=== PATIENT | female | born 1940 | race Caucasian/White ===

== ENCOUNTER 2019-04-13 17:02 | Observation (INO) ==
[2019-04-13 17:56] LABS: Basophils % 0.5 % (0.0-0.8); Eosinophils % 0.2 % (0.00-10.9); Hematocrit 37.1 VOL% (35.7-47.0); Immature Granulocytes % 0.5 %; Immature Granulocytes Absolute 0.03 #; Lymphocytes # 0.7 10*3/uL (1.4-4.0); Lymphocytes % 11.8 % (21.3-54.2); Mean Corpuscular Volume 95.1 FL (87-102); Mean Platelet Volume 10.5 FL (9.6-12.0); Monocytes % 5.2 % (1.7-12.7); Neutrophils % 81.8 % (38.7-73.9); Red Cell Distribution Width 12.9 % (9.3-17.3)
[2019-04-13 17:59] LABS: Platelet Count 169 T/CUMM (130-400)
[2019-04-13 18:10] LABS: Albumin 3.8 G/DL (3.4-5.0); Bilirubin,Total 0.7 MG/DL (0.2-1.0); Calcium 10.7 MG/DL (8.5-10.1); Osmolality,Calculated 280.5 MOS/KG (273-304); Total Protein 6.8 G/DL (6.4-8.3)
[2019-04-13] MEDS ORDERED: ASPIRIN 325 MG TABLET PO STA (19:42)
[2019-04-13 19:57] LABS: INR 1.1; PT Patient Result 11.4 SECS (9.6-12.2)
[2019-04-13] MEDS ORDERED: NITROGLYCERIN SL 0.4 MG TABLET SL STA (20:01)
[2019-04-13] MEDS ORDERED: SODIUM CHLORIDE 0.9% 500 ML IV STA (20:01)
[2019-04-13 20:11] LABS: Apearance,Urine Slightly Hazy (Clear); Bilirubin,Urine Negative (Negative); Blood, Urine Negative (Negative); Glucose,Urine (UA) Negative (Negative); Hyaline Casts,Urine 65 /LPF (0-3); Ketones,Urine 20 mg/dL (Negative); Mucus,Urine Many /LPF (Occasional); Nitrite,Urine Negative (Negative); Protein,Urine 100 MG/DL; Squamous Epithelial Cell,Urine Occasional /HPF (0-10); Urine Color Amber (Yellow); Urine Specific Gravity 1.021 (1.001-1.035); WBC,Urine 7 /HPF (0-6)
[2019-04-13] MEDS ORDERED: ENOXAPARIN 30 MG/0.3 ML SYRINGE SUBCUT STA (20:33)
[2019-04-13] MEDS ORDERED: cefTRIAXone 1,000 MG in SODIUM CHLORIDE 0.9% 100 ML IV STA (20:35)
[2019-04-13] MEDS ORDERED: ENOXAPARIN 60 MG/0.6 ML SYRINGE ONE (20:39)
[2019-04-13] MEDS ORDERED: POTASSIUM CHLORIDE 20 MEQ TABLET PO PRN (22:49)
[2019-04-13] MEDS ORDERED: MORPHINE 4 MG/1 ML VIAL IV PRN (22:49)
[2019-04-13] MEDS ORDERED: MAGNESIUM SULF RIDER 2 GM in PREMIX 1 EACH IV PRN (22:49)
[2019-04-14] MEDS ORDERED: ONDANSETRON 4 MG/2 ML VIAL IV PRN (00:12)
[2019-04-14] MEDS ORDERED: hydrOXYzine HCL 25 MG TABLET PO SCH (00:30)
[2019-04-14] MEDS ORDERED: ROSUVASTATIN 10 MG TABLET PO SCH (00:30)
[2019-04-14] MEDS: ASPIRIN EC 81 MG TABLET PO SCH ×2 (01:01→09:03)
[2019-04-14 04:00] LABS: INR 1.1; PT Patient Result 11.8 SECS (9.6-12.2)
[2019-04-14 04:11] LABS: Albumin 3.1 G/DL (3.4-5.0); Bilirubin,Total 0.5 MG/DL (0.2-1.0); Calcium 9.9 MG/DL (8.5-10.1); Osmolality,Calculated 282.3 MOS/KG (273-304); Risk Ratio 1.65; Total Protein 5.9 G/DL (6.4-8.3)
[2019-04-14 04:17] LABS: Basophils % 0.8 % (0.0-0.8); Eosinophils # 0.1 10*3/uL (0.0-0.87); Eosinophils % 1.2 % (0.00-10.9); Hematocrit 31.7 VOL% (35.7-47.0); Immature Granulocytes % 0.2 %; Immature Granulocytes Absolute 0.01 #; Lymphocytes # 1.5 10*3/uL (1.4-4.0); Lymphocytes % 29.1 % (21.3-54.2); Mean Corpuscular HGB Conc 34.7 GM/DL (32-36); Mean Corpuscular Volume 95.5 FL (87-102); Monocytes % 9.3 % (1.7-12.7); Neutrophils % 59.4 % (38.7-73.9); Platelet Count 219 T/CUMM (130-400); Red Blood Count 3.32 MC/CUMM (3.8-5.5); Red Cell Distribution Width 12.5 % (9.3-17.3); White Blood Count 5.1 T/CUMM (4-12)
[2019-04-14] MEDS ORDERED: ENOXAPARIN 30 MG/0.3 ML SYRINGE SUBCUT SCH (09:00)
[2019-04-14] MEDS ORDERED: PAROXETINE HCL 12.5 MG PO SCH (09:00)
[2019-04-14] MEDS ORDERED: MAGNESIUM SULF RIDER 2 GM in PREMIX 1 EACH IV ONE (10:40)
[2019-04-14] MEDS ORDERED: POTASSIUM CHLORIDE 20 MEQ TABLET PO SCH (11:00)
[2019-04-14 12:42] VITALS: BP 180/77
== END 2019-04-14 14:24 | disposition home or self-care (01) ==
LOC: N.ED 17:02 → N.EDINP 17:02 → N.TELES 23:43
PROVIDERS: ADMIT Hospitalist; ATTEND Hospitalist

== ENCOUNTER 2021-06-03 16:41 | Inpatient (IN) ==
[2021-06-03] MEDS ORDERED: FUROSEMIDE 40 MG/4 ML VIAL IV STA ×2 (18:06→18:07)
[2021-06-03 18:21] LABS: Bilirubin,Urine Negative (Negative); Blood, Urine Small mg/dL (Negative); Glucose,Urine (UA) Negative (Negative); Hyaline Casts,Urine 17 /LPF (0-3); Ketones,Urine Negative (Negative); Mucus,Urine Occasional /LPF (Occasional); Nitrite,Urine Negative (Negative); Protein,Urine 100 MG/DL; RBC,Urine 2 /HPF (0-4); Squamous Epithelial Cell,Urine Few /HPF (0-10); Urine Appearance CLEAR (Clear); Urine Color Yellow (Yellow); Urine Specific Gravity 1.014 (1.001-1.035)
[2021-06-03 18:29] LABS: Basophils % 0.3 % (0.0-0.8); Eosinophils % 0.3 % (0.00-10.9); Hematocrit 34.4 VOL% (35.7-47.0); Hemoglobin 11.5 GM/DL (12.0-16.0); Immature Granulocytes % 0.3 %; Immature Granulocytes Absolute 0.02 #; Lymphocytes # 0.7 10*3/uL (1.4-4.0); Lymphocytes % 11.4 % (21.3-54.2); Mean Corpuscular HGB Conc 33.4 GM/DL (32-36); Mean Corpuscular Volume 97.5 FL (87-102); Monocytes % 8.5 % (1.7-12.7); Neutrophils % 79.2 % (38.7-73.9); Platelet Count 251 T/CUMM (130-400); Red Blood Count 3.53 MC/CUMM (3.8-5.5); Red Cell Distribution Width 13.7 % (9.3-17.3); White Blood Count 6.2 T/CUMM (4-12)
[2021-06-03 18:41] LABS: INR 1.2; PT Patient Result 13.4 SECS (10.5-12.0); Partial Thromboplastin Time 28.9 SECS (23.8-32.1)
[2021-06-03 18:52] LABS: Albumin 3.1 G/DL (3.4-5.0); Bilirubin,Total 1.7 MG/DL (0.20-1.00); Calcium 9.6 MG/DL (8.5-10.1); Osmolality,Calculated 267.5 MOS/KG (273-304); Potassium 3.5 MMOL/L (3.5-5.1); Total Protein 6.5 G/DL (6.4-8.2)
[2021-06-03] MEDS ORDERED: DILTIAZEM 50 MG/10 ML VIAL IV STA (19:16)
[2021-06-03] MEDS ORDERED: GLUCAGON 1 MG VIAL IM PRN (19:19)
[2021-06-03] MEDS ORDERED: DEXTROSE 50% 25 GM/50 ML SYRINGE IV PRN (19:23)
[2021-06-03] MEDS ORDERED: hydrALAZINE 20 MG/1 ML VIAL IV PRN (19:52)
[2021-06-03] MEDS: DILTIAZEM INJ 100 MG in SODIUM CHLORIDE 0.9% 100 ML IV SCH (20:39)
[2021-06-03] MEDS: ENOXAPARIN 60 MG/0.6 ML SYRINGE SUBCUT SCH (22:25)
[2021-06-04 05:11] LABS: Basophils % 0.4 % (0.0-0.8); Eosinophils # 0.1 10*3/uL (0.0-0.87); Hematocrit 35.2 VOL% (35.7-47.0); Hemoglobin 12.2 GM/DL (12.0-16.0); Immature Granulocytes % 0.3 %; Immature Granulocytes Absolute 0.02 #; Lymphocytes # 0.8 10*3/uL (1.4-4.0); Lymphocytes % 11.4 % (21.3-54.2); Mean Corpuscular HGB Conc 34.7 GM/DL (32-36); Mean Corpuscular Volume 96.4 FL (87-102); Mean Platelet Volume 10.3 FL (9.6-12.0); Monocytes % 9.1 % (1.7-12.7); Neutrophils % 77.8 % (38.7-73.9); Platelet Count 245 T/CUMM (130-400); Red Blood Count 3.65 MC/CUMM (3.8-5.5); Red Cell Distribution Width 13.2 % (9.3-17.3)
[2021-06-04 05:47] LABS: Calcium 9.6 MG/DL (8.5-10.1); Osmolality,Calculated 278.5 MOS/KG (273-304); Potassium 2.6 MMOL/L (3.5-5.1); Risk Ratio 1.75; Thyroid Stimulating Hormone 2.17 uIU/ml (0.358-3.74); VLDL Cholesterol 13.2 MG/DL
[2021-06-04] MEDS: ENOXAPARIN 60 MG/0.6 ML SYRINGE SUBCUT SCH (06:34)
[2021-06-04] MEDS ORDERED: MAGNESIUM SULF RIDER 2 GM/50 ML PREMIX IV PRN (06:58)
[2021-06-04] MEDS ORDERED: MAGNESIUM SULF RIDER 4 GM/100 ML PREMIX IV PRN (06:58)
[2021-06-04] MEDS ORDERED: POTASSIUM CHLORIDE RIDER 10 MEQ/100 ML PREMIX IV PRN (06:58)
[2021-06-04] MEDS ORDERED: MAGNESIUM SULF RIDER 2 GM/50 ML PREMIX IV ONE (07:23)
[2021-06-04] MEDS ORDERED: POTASSIUM CHLORIDE 20 MEQ TABLET PO ONE (07:23)
[2021-06-04] MEDS ORDERED: SOTALOL 80 MG TABLET PO SCH (09:00)
[2021-06-04] MEDS ORDERED: METOPROLOL TARTRATE 25 MG TABLET PO SCH (09:00)
[2021-06-04] MEDS: ROSUVASTATIN 10 MG TABLET PO SCH (09:54)
[2021-06-04] MEDS: lisinopriL 20 MG TABLET PO SCH (09:55)
[2021-06-04] MEDS: CHOLECALCIFEROL 1,000 UNIT TABLET PO SCH (09:55)
[2021-06-04] MEDS: SPIRONOLACTONE 25 MG TABLET PO SCH (09:55)
[2021-06-04] MEDS: ASCORBIC ACID 500 MG TABLET PO SCH ×2 (09:55→21:22)
[2021-06-04] MEDS: AMIODARONE 200 MG TABLET PO SCH ×2 (09:56→21:22)
[2021-06-04] MEDS: APIXABAN 2.5 MG TABLET PO SCH ×2 (09:56→21:22)
[2021-06-04] MEDS: ASPIRIN EC 81 MG TABLET PO SCH (09:56)
[2021-06-04] MEDS: PRIMIDONE 50 MG TABLET PO SCH (09:56)
[2021-06-04] MEDS: METOPROLOL TARTRATE 25 MG TABLET PO SCH ×2 (10:02→21:21)
[2021-06-04] MEDS: POTASSIUM CHLORIDE 10 MEQ TABLET PO SCH (10:02)
[2021-06-04] MEDS: PAROXETINE HCL 12.5 MG PO SCH (10:03)
[2021-06-04] MEDS: MAGNESIUM OXIDE 400 MG TABLET PO SCH (10:51)
[2021-06-04] MEDS: FUROSEMIDE 40 MG/4 ML VIAL IV SCH (21:22)
[2021-06-04] MEDS: hydrOXYzine HCL 25 MG TABLET PO SCH (21:22)
[2021-06-05] MEDS: DILTIAZEM INJ 100 MG in SODIUM CHLORIDE 0.9% 100 ML IV SCH (04:52)
[2021-06-05 06:46] LABS: Albumin 2.8 G/DL (3.4-5.0); Bilirubin,Total 0.5 MG/DL (0.20-1.00); Calcium 10.2 MG/DL (8.5-10.1); Osmolality,Calculated 269.2 MOS/KG (273-304); Potassium 3.2 MMOL/L (3.5-5.1)
[2021-06-05] MEDS ORDERED: POTASSIUM CHLORIDE 20 MEQ TABLET PO ONE (07:52)
[2021-06-05] MEDS: ROSUVASTATIN 10 MG TABLET PO SCH (09:26)
[2021-06-05] MEDS: ASCORBIC ACID 500 MG TABLET PO SCH ×2 (09:29→20:46)
[2021-06-05] MEDS: lisinopriL 20 MG TABLET PO SCH (09:30)
[2021-06-05] MEDS: METOPROLOL TARTRATE 25 MG TABLET PO SCH ×2 (09:32→20:46)
[2021-06-05] MEDS: CHOLECALCIFEROL 1,000 UNIT TABLET PO SCH (09:33)
[2021-06-05] MEDS: APIXABAN 2.5 MG TABLET PO SCH ×2 (09:34→20:47)
[2021-06-05] MEDS: AMIODARONE 200 MG TABLET PO SCH ×2 (09:35→20:47)
[2021-06-05] MEDS: ASPIRIN EC 81 MG TABLET PO SCH (09:35)
[2021-06-05] MEDS: SPIRONOLACTONE 25 MG TABLET PO SCH (09:36)
[2021-06-05] MEDS: MAGNESIUM OXIDE 400 MG TABLET PO SCH (09:37)
[2021-06-05] MEDS: FUROSEMIDE 40 MG/4 ML VIAL IV SCH ×2 (09:38→16:34)
[2021-06-05] MEDS: PRIMIDONE 50 MG TABLET PO SCH (09:38)
[2021-06-05] MEDS: PAROXETINE HCL 12.5 MG PO SCH (09:45)
[2021-06-05] MEDS: POTASSIUM CHLORIDE 10 MEQ TABLET PO SCH (16:32)
[2021-06-05] MEDS: hydrOXYzine HCL 25 MG TABLET PO SCH (20:47)
[2021-06-06 05:24] LABS: Calcium 9.4 MG/DL (8.5-10.1); Osmolality,Calculated 273.1 MOS/KG (273-304); Potassium 3.4 MMOL/L (3.5-5.1)
[2021-06-06] MEDS ORDERED: POTASSIUM CHLORIDE 20 MEQ TABLET PO ONE (08:04)
[2021-06-06] MEDS ORDERED: MAGNESIUM OXIDE 400 MG TABLET PO SCH (09:00)
[2021-06-06] MEDS: lisinopriL 20 MG TABLET PO SCH (10:11)
[2021-06-06] MEDS: CHOLECALCIFEROL 1,000 UNIT TABLET PO SCH (10:11)
[2021-06-06] MEDS: ROSUVASTATIN 10 MG TABLET PO SCH (10:12)
[2021-06-06] MEDS: SPIRONOLACTONE 25 MG TABLET PO SCH (10:12)
[2021-06-06] MEDS: ASCORBIC ACID 500 MG TABLET PO SCH (10:13)
[2021-06-06] MEDS: METOPROLOL TARTRATE 25 MG TABLET PO SCH (10:13)
[2021-06-06] MEDS: POTASSIUM CHLORIDE 10 MEQ TABLET PO SCH (10:13)
[2021-06-06] MEDS: APIXABAN 2.5 MG TABLET PO SCH (10:14)
[2021-06-06] MEDS: ASPIRIN EC 81 MG TABLET PO SCH (10:14)
[2021-06-06] MEDS: PAROXETINE HCL 12.5 MG PO SCH (10:15)
[2021-06-06] MEDS: PRIMIDONE 50 MG TABLET PO SCH (10:16)
[2021-06-06] MEDS ORDERED: AMIODARONE 200 MG TABLET PO SCH (11:00)
[2021-06-06] MEDS ORDERED: METOPROLOL SUCCINATE XL 25 MG TABLET PO SCH ×2 (11:00→11:30)
[2021-06-06] MEDS: FUROSEMIDE 40 MG/4 ML VIAL IV SCH (12:29)
[2021-06-06] MEDS: AMIODARONE 200 MG TABLET PO SCH (12:30)
[2021-06-06 12:55] VITALS: BP 137/68
== END 2021-06-06 14:45 | disposition home health service (06) | DRG 308 ==
LOC: N.EDINP 16:41 → N.ED 16:41 → SUATTDRO 19:19 → N.TELEN 22:08
PROVIDERS: ADMIT Emergency Medicine; ATTEND Internal Medicine

== ENCOUNTER 2021-06-14 13:21 | Inpatient (IN) ==
[2021-06-14] MEDS ORDERED: hydrALAZINE 20 MG/1 ML VIAL IV STA (14:08)
[2021-06-14 14:19] LABS: Albumin 3.3 G/DL (3.4-5.0); Bilirubin,Total 0.5 MG/DL (0.20-1.00); Calcium 9.7 MG/DL (8.5-10.1); Osmolality,Calculated 259.8 MOS/KG (273-304); Potassium 4.6 MMOL/L (3.5-5.1); Total Protein 6.6 G/DL (6.4-8.2)
[2021-06-14 14:38] LABS: Basophils # 0.1 10*3/uL (0.0-0.2); Basophils % 1.3 % (0.0-0.8); Eosinophils # 0.1 10*3/uL (0.0-0.87); Eosinophils % 1.3 % (0.00-10.9); Hematocrit 36.3 VOL% (35.7-47.0); Hemoglobin 12.3 GM/DL (12.0-16.0); Immature Granulocytes % 0.4 %; Immature Granulocytes Absolute 0.02 #; Lymphocytes # 0.7 10*3/uL (1.4-4.0); Mean Corpuscular HGB Conc 33.9 GM/DL (32-36); Mean Corpuscular Volume 98.9 FL (87-102); Mean Platelet Volume 9.6 FL (9.6-12.0); Monocytes % 9.8 % (1.7-12.7); Neutrophils % 72.2 % (38.7-73.9); Platelet Count 284 T/CUMM (130-400); Red Blood Count 3.67 MC/CUMM (3.8-5.5); White Blood Count 4.6 T/CUMM (4-12)
[2021-06-14 16:03] LABS: Bilirubin,Urine Negative (Negative); Blood, Urine Negative (Negative); Glucose,Urine (UA) Negative (Negative); Ketones,Urine Negative (Negative); Nitrite,Urine Negative (Negative); Protein,Urine Negative; RBC,Urine <1 /HPF (0-4); Urine Appearance CLEAR (Clear); Urine Color Straw (Yellow); Urine Specific Gravity 1.003 (1.001-1.035); Urine Urobilinogen < 2.0 EU/DL (0.2-1.0)
[2021-06-14] MEDS ORDERED: ALUMINUM/MAGNES/SIMETH MAX STR 30 ML UDCUP PO PRN (16:09)
[2021-06-14] MEDS ORDERED: ACETAMINOPHEN 325 MG TABLET PO PRN (16:09)
[2021-06-14] MEDS ORDERED: hydrALAZINE 20 MG/1 ML VIAL IV PRN (16:09)
[2021-06-14] MEDS ORDERED: GLUCAGON 1 MG VIAL IM PRN (16:09)
[2021-06-14] MEDS ORDERED: ONDANSETRON 4 MG/2 ML VIAL IV PRN (16:09)
[2021-06-14] MEDS ORDERED: guaiFENesin/DM ER 600-30 MG TABLET PO PRN (16:09)
[2021-06-14] MEDS ORDERED: DOCUSATE SODIUM 100 MG CAPSULE PO PRN (16:09)
[2021-06-14] MEDS ORDERED: FUROSEMIDE 40 MG/4 ML VIAL IV STA (16:14)
[2021-06-14] MEDS ORDERED: ALBUTEROL/IPRATROPIUM 3 ML NEB RESP TX PRN (16:16)
[2021-06-14] MEDS ORDERED: DEXTROSE 50% 25 GM/50 ML SYRINGE IV PRN (16:17)
[2021-06-14] MEDS: cefTRIAXone 1,000 MG in SODIUM CHLORIDE 0.9% 100 ML IV SCH (17:10)
[2021-06-14] MEDS: AZITHROMYCIN INJ 500 MG in SODIUM CHLORIDE 0.9% 250 ML IV SCH (18:40)
[2021-06-14 18:57] LABS: Thyroid Stimulating Hormone 2.59 uIU/ml (0.358-3.74)
[2021-06-15] MEDS: ROSUVASTATIN 10 MG TABLET PO SCH ×2 (01:09→22:18)
[2021-06-15] MEDS: APIXABAN 2.5 MG TABLET PO SCH ×3 (01:09→22:19)
[2021-06-15] MEDS: MAGNESIUM OXIDE 400 MG TABLET PO SCH ×3 (01:10→22:18)
[2021-06-15] MEDS: ASCORBIC ACID 500 MG TABLET PO SCH ×3 (01:10→22:19)
[2021-06-15 02:51] LABS: Basophils # 0.1 10*3/uL (0.0-0.2); Basophils % 0.7 % (0.0-0.8); Eosinophils % 0.1 % (0.00-10.9); Hemoglobin 12.9 GM/DL (12.0-16.0); Immature Granulocytes % 0.4 %; Immature Granulocytes Absolute 0.03 #; Lymphocytes # 0.6 10*3/uL (1.4-4.0); Lymphocytes % 7.8 % (21.3-54.2); Mean Corpuscular HGB Conc 33.9 GM/DL (32-36); Mean Corpuscular Volume 96.9 FL (87-102); Mean Platelet Volume 9.5 FL (9.6-12.0); Monocytes % 5.7 % (1.7-12.7); Neutrophils % 85.3 % (38.7-73.9); Platelet Count 305 T/CUMM (130-400); Red Blood Count 3.92 MC/CUMM (3.8-5.5); Red Cell Distribution Width 14.2 % (9.3-17.3); White Blood Count 7.2 T/CUMM (4-12)
[2021-06-15 03:20] LABS: Albumin 3.3 G/DL (3.4-5.0); Bilirubin,Total 0.5 MG/DL (0.20-1.00); Calcium 9.7 MG/DL (8.5-10.1); Osmolality,Calculated 265.4 MOS/KG (273-304); Potassium 3.6 MMOL/L (3.5-5.1); Risk Ratio 1.74; Total Protein 6.7 G/DL (6.4-8.2); VLDL Cholesterol 6.6 MG/DL
[2021-06-15] MEDS: PRIMIDONE 50 MG TABLET PO SCH (10:29)
[2021-06-15] MEDS: PANTOPRAZOLE 40 MG TABLET PO SCH (10:29)
[2021-06-15] MEDS: CHOLECALCIFEROL 1,000 UNIT TABLET PO SCH (10:30)
[2021-06-15] MEDS: lisinopriL 20 MG TABLET PO SCH (10:30)
[2021-06-15] MEDS: ASPIRIN EC 81 MG TABLET PO SCH (10:30)
[2021-06-15] MEDS: FUROSEMIDE 40 MG/4 ML VIAL IV SCH (10:31)
[2021-06-15] MEDS: PAROXETINE 12.5 MG PO SCH ×2 (10:42→18:09)
[2021-06-15] MEDS: cefTRIAXone 1,000 MG in SODIUM CHLORIDE 0.9% 100 ML IV SCH (17:24)
[2021-06-15] MEDS: AZITHROMYCIN INJ 500 MG in SODIUM CHLORIDE 0.9% 250 ML IV SCH (18:01)
[2021-06-15] MEDS: hydrOXYzine HCL 25 MG TABLET PO SCH (22:18)
[2021-06-16 05:52] LABS: Basophils # 0.1 10*3/uL (0.0-0.2); Basophils % 1.2 % (0.0-0.8); Eosinophils # 0.3 10*3/uL (0.0-0.87); Eosinophils % 4.8 % (0.00-10.9); Hematocrit 34.2 VOL% (35.7-47.0); Hemoglobin 11.7 GM/DL (12.0-16.0); Immature Granulocytes % 0.2 %; Immature Granulocytes Absolute 0.01 #; Lymphocytes # 0.8 10*3/uL (1.4-4.0); Lymphocytes % 15.5 % (21.3-54.2); Mean Corpuscular HGB Conc 34.2 GM/DL (32-36); Mean Corpuscular Volume 96.6 FL (87-102); Mean Platelet Volume 9.5 FL (9.6-12.0); Monocytes % 10.1 % (1.7-12.7); Neutrophils % 68.2 % (38.7-73.9); Platelet Count 262 T/CUMM (130-400); Red Blood Count 3.54 MC/CUMM (3.8-5.5); White Blood Count 5.2 T/CUMM (4-12)
[2021-06-16 06:23] LABS: Calcium 8.9 MG/DL (8.5-10.1); Osmolality,Calculated 270.1 MOS/KG (273-304); Potassium 3.3 MMOL/L (3.5-5.1)
[2021-06-16] MEDS ORDERED: POTASSIUM CHLORIDE 20 MEQ TABLET PO ONE (09:00)
[2021-06-16] MEDS: MAGNESIUM OXIDE 400 MG TABLET PO SCH ×2 (09:43→21:13)
[2021-06-16] MEDS: lisinopriL 20 MG TABLET PO SCH (09:44)
[2021-06-16] MEDS: PANTOPRAZOLE 40 MG TABLET PO SCH (09:44)
[2021-06-16] MEDS: APIXABAN 2.5 MG TABLET PO SCH ×2 (09:44→21:09)
[2021-06-16] MEDS: ASCORBIC ACID 500 MG TABLET PO SCH ×2 (09:44→21:13)
[2021-06-16] MEDS: CHOLECALCIFEROL 1,000 UNIT TABLET PO SCH (09:44)
[2021-06-16] MEDS: ASPIRIN EC 81 MG TABLET PO SCH (09:44)
[2021-06-16] MEDS: PRIMIDONE 50 MG TABLET PO SCH (09:51)
[2021-06-16] MEDS: FUROSEMIDE 40 MG/4 ML VIAL IV SCH (09:55)
[2021-06-16] MEDS ORDERED: SODIUM CHLORIDE 0.9% 1,000 ML IV SCH (11:00)
[2021-06-16] MEDS ORDERED: POTASSIUM CHLORIDE RIDER 10 MEQ/100 ML PREMIX IV PRN (11:53)
[2021-06-16] MEDS ORDERED: TISSUE ADHESIVE 1 EACH APPLICATOR TOP ONE (12:41)
[2021-06-16] MEDS ORDERED: LIDOCAINE 1%/EPI INJ 20 ML VIAL ONE (12:41)
[2021-06-16] MEDS ORDERED: MIDAZOLAM 2 MG/2 ML VIAL ONE (12:41)
[2021-06-16] MEDS ORDERED: HYDROmorphone 2 MG/1 ML VIAL ONE (12:41)
[2021-06-16] MEDS ORDERED: ceFAZolin 1,000 MG VIAL ONE ×2 (12:53→12:56)
[2021-06-16] MEDS ORDERED: METOPROLOL TARTRATE 5 MG/5 ML VIAL IV ONE (13:29)
[2021-06-16] MEDS ORDERED: NALOXONE 0.4 MG/ML VIAL IV ONE ×2 (15:15→15:18)
[2021-06-16 15:30] LABS: Calcium 9.7 MG/DL (8.5-10.1); Osmolality,Calculated 275.1 MOS/KG (273-304); Potassium 4.3 MMOL/L (3.5-5.1)
[2021-06-16] MEDS: PAROXETINE 12.5 MG PO SCH (15:47)
[2021-06-16] MEDS: cefTRIAXone 1,000 MG in SODIUM CHLORIDE 0.9% 100 ML IV SCH (16:22)
[2021-06-16] MEDS: AZITHROMYCIN INJ 500 MG in SODIUM CHLORIDE 0.9% 250 ML IV SCH (17:27)
[2021-06-16] MEDS: hydrOXYzine HCL 25 MG TABLET PO SCH (21:12)
[2021-06-16] MEDS: ROSUVASTATIN 10 MG TABLET PO SCH (21:12)
[2021-06-17 05:32] LABS: Calcium 9.4 MG/DL (8.5-10.1); Osmolality,Calculated 270.4 MOS/KG (273-304); Potassium 4.3 MMOL/L (3.5-5.1)
[2021-06-17] MEDS: FUROSEMIDE 40 MG/4 ML VIAL IV SCH (09:22)
[2021-06-17] MEDS: PAROXETINE 12.5 MG PO SCH (09:24)
[2021-06-17] MEDS: APIXABAN 2.5 MG TABLET PO SCH (09:25)
[2021-06-17] MEDS: lisinopriL 20 MG TABLET PO SCH (09:25)
[2021-06-17] MEDS: ASPIRIN EC 81 MG TABLET PO SCH (09:25)
[2021-06-17] MEDS: PRIMIDONE 50 MG TABLET PO SCH (09:26)
[2021-06-17] MEDS: ASCORBIC ACID 500 MG TABLET PO SCH ×2 (09:26→20:24)
[2021-06-17] MEDS: CHOLECALCIFEROL 1,000 UNIT TABLET PO SCH (09:26)
[2021-06-17] MEDS: MAGNESIUM OXIDE 400 MG TABLET PO SCH ×2 (09:26→20:23)
[2021-06-17] MEDS: PANTOPRAZOLE 40 MG TABLET PO SCH (09:26)
[2021-06-17 12:17] LABS: Basophils % 0.1 % (0.0-0.8); Eosinophils % 0.1 % (0.00-10.9); Hematocrit 35.2 VOL% (35.7-47.0); Hemoglobin 11.8 GM/DL (12.0-16.0); Immature Granulocytes % 0.3 %; Immature Granulocytes Absolute 0.03 #; Lymphocytes # 0.8 10*3/uL (1.4-4.0); Lymphocytes % 7.6 % (21.3-54.2); Mean Corpuscular HGB Conc 33.5 GM/DL (32-36); Mean Corpuscular Volume 99.7 FL (87-102); Mean Platelet Volume 9.3 FL (9.6-12.0); Monocytes % 7.4 % (1.7-12.7); Neutrophils % 84.5 % (38.7-73.9); Platelet Count 265 T/CUMM (130-400); Red Blood Count 3.53 MC/CUMM (3.8-5.5); Red Cell Distribution Width 14.5 % (9.3-17.3); White Blood Count 9.9 T/CUMM (4-12)
[2021-06-17 15:32] LABS: Bilirubin,Urine Negative (Negative); Blood, Urine Large mg/dL (Negative); Glucose,Urine (UA) Negative (Negative); Hyaline Casts,Urine 3 /LPF (0-3); Ketones,Urine Negative (Negative); Mucus,Urine Occasional /LPF (Occasional); Nitrite,Urine Negative (Negative); Protein,Urine 100 MG/DL; RBC,Urine 742 /HPF (0-4); Urine Appearance CLOUDY (Clear); Urine Color Amber (Yellow); Urine Specific Gravity 1.012 (1.001-1.035); Urine Urobilinogen < 2.0 EU/DL (0.2-1.0)
[2021-06-17] MEDS: cefTRIAXone 1,000 MG in SODIUM CHLORIDE 0.9% 100 ML IV SCH (16:35)
[2021-06-17] MEDS: AZITHROMYCIN INJ 500 MG in SODIUM CHLORIDE 0.9% 250 ML IV SCH (17:14)
[2021-06-17] MEDS: ROSUVASTATIN 10 MG TABLET PO SCH (20:24)
[2021-06-17] MEDS: hydrOXYzine HCL 25 MG TABLET PO SCH (20:28)
[2021-06-18 07:12] LABS: Basophils % 0.6 % (0.0-0.8); Eosinophils # 0.3 10*3/uL (0.0-0.87); Eosinophils % 3.7 % (0.00-10.9); Hemoglobin 10.8 GM/DL (12.0-16.0); Immature Granulocytes % 0.3 %; Immature Granulocytes Absolute 0.02 #; Lymphocytes # 0.8 10*3/uL (1.4-4.0); Lymphocytes % 11.6 % (21.3-54.2); Mean Corpuscular HGB Conc 33.8 GM/DL (32-36); Mean Corpuscular Volume 98.8 FL (87-102); Mean Platelet Volume 9.5 FL (9.6-12.0); Monocytes % 8.5 % (1.7-12.7); Neutrophils % 75.3 % (38.7-73.9); Platelet Count 212 T/CUMM (130-400); Red Blood Count 3.24 MC/CUMM (3.8-5.5); White Blood Count 6.8 T/CUMM (4-12)
[2021-06-18] MEDS: CHOLECALCIFEROL 1,000 UNIT TABLET PO SCH (08:57)
[2021-06-18] MEDS: lisinopriL 20 MG TABLET PO SCH (08:57)
[2021-06-18] MEDS: PANTOPRAZOLE 40 MG TABLET PO SCH (08:58)
[2021-06-18] MEDS: FUROSEMIDE 40 MG/4 ML VIAL IV SCH (08:58)
[2021-06-18] MEDS: MAGNESIUM OXIDE 400 MG TABLET PO SCH ×2 (08:58→20:24)
[2021-06-18] MEDS: PRIMIDONE 50 MG TABLET PO SCH (08:58)
[2021-06-18] MEDS: ASPIRIN EC 81 MG TABLET PO SCH (08:58)
[2021-06-18] MEDS: ASCORBIC ACID 500 MG TABLET PO SCH ×2 (08:58→20:23)
[2021-06-18] MEDS: PAROXETINE 12.5 MG PO SCH (08:59)
[2021-06-18] MEDS: AMIODARONE 200 MG TABLET PO SCH ×2 (09:39→20:24)
[2021-06-18] MEDS: cefTRIAXone 1,000 MG in SODIUM CHLORIDE 0.9% 100 ML IV SCH (16:47)
[2021-06-18] MEDS: AZITHROMYCIN INJ 500 MG in SODIUM CHLORIDE 0.9% 250 ML IV SCH (17:26)
[2021-06-18] MEDS: hydrOXYzine HCL 25 MG TABLET PO SCH (20:23)
[2021-06-18] MEDS: ROSUVASTATIN 10 MG TABLET PO SCH (20:24)
[2021-06-19] MEDS: ASCORBIC ACID 500 MG TABLET PO SCH (08:45)
[2021-06-19] MEDS: CHOLECALCIFEROL 1,000 UNIT TABLET PO SCH (08:46)
[2021-06-19] MEDS: PANTOPRAZOLE 40 MG TABLET PO SCH (08:46)
[2021-06-19] MEDS: ASPIRIN EC 81 MG TABLET PO SCH (08:46)
[2021-06-19] MEDS: lisinopriL 20 MG TABLET PO SCH (08:46)
[2021-06-19] MEDS: AMIODARONE 200 MG TABLET PO SCH (08:46)
[2021-06-19] MEDS: MAGNESIUM OXIDE 400 MG TABLET PO SCH (08:46)
[2021-06-19] MEDS: PRIMIDONE 50 MG TABLET PO SCH (08:46)
[2021-06-19] MEDS: PAROXETINE 12.5 MG PO SCH (08:49)
[2021-06-19] MEDS: FUROSEMIDE 40 MG/4 ML VIAL IV SCH (09:00)
[2021-06-19 12:36] VITALS: BP 111/69
[2021-06-19] MEDS: cefTRIAXone 1,000 MG in SODIUM CHLORIDE 0.9% 100 ML IV SCH (16:26)
== END 2021-06-19 17:31 | disposition home health service (06) | DRG 226 ==
LOC: SUATTDRO → N.ED 13:21 → SUATTDRO 16:09 → N.EDINP 16:09 → N.TELES 06-15 02:00
PROVIDERS: ADMIT Internal Medicine; ATTEND Internal Medicine

== ENCOUNTER 2021-07-06 08:40 | Inpatient (IN) ==
[2021-07-06] MEDS ORDERED: LEVOFLOXACIN INJ 750 MG/150 ML PREMIX IV STA (08:56)
[2021-07-06] MEDS ORDERED: FUROSEMIDE 40 MG/4 ML VIAL IV STA (08:56)
[2021-07-06] MEDS ORDERED: ALBUTEROL 2.5 MG/3 ML NEB RESP TX STA (09:00)
[2021-07-06] MEDS ORDERED: hydrALAZINE 20 MG/1 ML VIAL IV STA (09:02)
[2021-07-06 09:35] LABS: Basophils % 0.1 % (0.0-0.8); Hematocrit 37.8 VOL% (35.7-47.0); Hemoglobin 12.5 GM/DL (12.0-16.0); Immature Granulocytes % 0.5 %; Immature Granulocytes Absolute 0.07 #; Lymphocytes # 0.3 10*3/uL (1.4-4.0); Lymphocytes % 2.2 % (21.3-54.2); Mean Corpuscular HGB Conc 33.1 GM/DL (32-36); Mean Corpuscular Volume 100.8 FL (87-102); Mean Platelet Volume 9.6 FL (9.6-12.0); Neutrophils % 90.2 % (38.7-73.9); Platelet Count 348 T/CUMM (130-400); Red Blood Count 3.75 MC/CUMM (3.8-5.5); Red Cell Distribution Width 15.2 % (9.3-17.3); White Blood Count 12.9 T/CUMM (4-12)
[2021-07-06 09:54] LABS: Hypochromia Slight; Lymphocytes 1 % (20-55); Microcytosis Slight; Platelet Estimate Adequate; Segmented Neutrophils 96 % (50-85); Total Cells Counted 100
[2021-07-06 09:58] LABS: Albumin 3.5 G/DL (3.4-5.0); Bilirubin,Total 1.2 MG/DL (0.20-1.00); Calcium 10.3 MG/DL (8.5-10.1); Osmolality,Calculated 266.1 MOS/KG (273-304); Potassium 5.1 MMOL/L (3.5-5.1); Total Protein 6.8 G/DL (6.4-8.2)
[2021-07-06 10:00] LABS: INR 1.5; PT Patient Result 16.6 SECS (10.5-12.0); Partial Thromboplastin Time 27.5 SECS (23.8-32.1)
[2021-07-06 10:02] LABS: Amorphous Crystals,Urine Occasional /HPF (Few); Bilirubin,Urine Negative (Negative); Blood, Urine Small mg/dL (Negative); Glucose,Urine (UA) 50 mg/dL (Negative); Hyaline Casts,Urine 8 /LPF (0-3); Ketones,Urine Negative (Negative); Mucus,Urine Occasional /LPF (Occasional); Nitrite,Urine Negative (Negative); Protein,Urine >=500 MG/DL; RBC,Urine 10 /HPF (0-4); Squamous Epithelial Cell,Urine Occasional /HPF (0-10); Urine Appearance Slightly Hazy (Clear); Urine Color Amber (Yellow); Urine Specific Gravity 1.022 (1.001-1.035); Urine Urobilinogen < 2.0 EU/DL (<2.0)
[2021-07-06] MEDS ORDERED: BISACODYL 5 MG TABLET PO PRN (10:51)
[2021-07-06] MEDS ORDERED: ZALEPLON 5 MG CAPSULE PO PRN (10:51)
[2021-07-06] MEDS ORDERED: MORPHINE 2 MG/1 ML SYRINGE IV PRN (10:51)
[2021-07-06] MEDS ORDERED: NICOTINE 21 MG/24 HR PATCH TRANSDERM PRN (10:51)
[2021-07-06] MEDS ORDERED: GLUCAGON 1 MG VIAL IM PRN (10:51)
[2021-07-06] MEDS ORDERED: diphenhydrAMINE CAP 25 MG CAPSULE PO PRN (10:51)
[2021-07-06] MEDS ORDERED: hydrALAZINE 20 MG/1 ML VIAL IV PRN (10:51)
[2021-07-06] MEDS ORDERED: DEXTROSE 50% 25 GM/50 ML SYRINGE IV PRN (10:51)
[2021-07-06] MEDS ORDERED: ACETAMINOPHEN 325 MG TABLET PO PRN (10:51)
[2021-07-06] MEDS ORDERED: ONDANSETRON 4 MG/2 ML VIAL IV PRN (10:51)
[2021-07-06] MEDS ORDERED: guaiFENesin/DM ER 600-30 MG TABLET PO PRN (10:51)
[2021-07-06] MEDS ORDERED: cefTRIAXone 1,000 MG in SODIUM CHLORIDE 0.9% 100 ML IV SCH (12:00)
[2021-07-06] MEDS: ALBUTEROL 2.5 MG/3 ML NEB RESP TX SCH ×2 (13:11→14:18)
[2021-07-06 13:21] LABS: ABG Oxygen Saturation 92.5 % (95-100); ABG PCO2 28.4 MM HG (35-48); ABG PH 7.435 (7.35-7.45); ABG PO2 68.8 MM HG (80-95)
[2021-07-06] MEDS ORDERED: METOPROLOL TARTRATE 5 MG/5 ML VIAL IV PRN (14:26)
[2021-07-06] MEDS: FUROSEMIDE 40 MG/4 ML VIAL IV SCH (16:36)
[2021-07-06] MEDS: MAGNESIUM OXIDE 400 MG TABLET PO SCH (20:46)
[2021-07-06] MEDS: ASCORBIC ACID 500 MG TABLET PO SCH (20:46)
[2021-07-06] MEDS ORDERED: FUROSEMIDE 40 MG/4 ML VIAL IV SCH (21:00)
[2021-07-06] MEDS ORDERED: hydrOXYzine HCL 25 MG TABLET PO SCH (21:00)
[2021-07-07] MEDS: ALBUTEROL 2.5 MG/3 ML NEB RESP TX SCH ×3 (01:30→07:21)
[2021-07-07 04:02] LABS: Basophils % 0.1 % (0.0-0.8); Hematocrit 34.9 VOL% (35.7-47.0); Immature Granulocytes % 0.6 %; Immature Granulocytes Absolute 0.08 #; Lymphocytes # 0.2 10*3/uL (1.4-4.0); Lymphocytes % 1.7 % (21.3-54.2); Mean Corpuscular HGB Conc 34.4 GM/DL (32-36); Mean Corpuscular Volume 96.7 FL (87-102); Mean Platelet Volume 9.8 FL (9.6-12.0); Monocytes % 2.7 % (1.7-12.7); NRBC # 0.02 10*3/uL; Neutrophils % 94.9 % (38.7-73.9); Platelet Count 243 T/CUMM (130-400); Red Blood Count 3.61 MC/CUMM (3.8-5.5); Red Cell Distribution Width 14.6 % (9.3-17.3); White Blood Count 12.6 T/CUMM (4-12)
[2021-07-07 04:29] LABS: Calcium 9.3 MG/DL (8.5-10.1); Osmolality,Calculated 269.2 MOS/KG (273-304); Potassium 4.4 MMOL/L (3.5-5.1)
[2021-07-07 04:32] LABS: Band Neutrophils 1 % (0-10); Lymphocytes 1 % (20-55); Platelet Estimate Adequate; Segmented Neutrophils 93 % (50-85); Total Cells Counted 100
[2021-07-07 04:33] LABS: Albumin 2.7 G/DL (3.4-5.0); Bilirubin,Total 0.8 MG/DL (0.20-1.00); Osmolality,Calculated 272.1 MOS/KG (273-304); Potassium 5.1 MMOL/L (3.5-5.1); Total Protein 5.6 G/DL (6.4-8.2)
[2021-07-07 07:47] VITALS: BP 139/93
[2021-07-07] MEDS: ASCORBIC ACID 500 MG TABLET PO SCH (08:56)
[2021-07-07] MEDS: MAGNESIUM OXIDE 400 MG TABLET PO SCH (08:57)
[2021-07-07] MEDS: FUROSEMIDE 40 MG/4 ML VIAL IV SCH (08:57)
[2021-07-07] MEDS ORDERED: AMIODARONE 200 MG TABLET PO SCH (09:00)
[2021-07-07] MEDS ORDERED: CHOLECALCIFEROL 1,000 UNIT TABLET PO SCH (09:00)
[2021-07-07] MEDS ORDERED: METOPROLOL TARTRATE 25 MG TABLET PO SCH (09:00)
[2021-07-07] MEDS ORDERED: ASPIRIN EC 81 MG TABLET PO SCH (09:00)
[2021-07-07] MEDS ORDERED: PANTOPRAZOLE 40 MG TABLET PO SCH (09:00)
[2021-07-07] MEDS ORDERED: AZITHROMYCIN INJ 500 MG in SODIUM CHLORIDE 0.9% 250 ML IV SCH (09:00)
[2021-07-07] MEDS ORDERED: PRIMIDONE 50 MG TABLET PO SCH (09:00)
[2021-07-07] MEDS ORDERED: PAROXETINE HCL 12.5 MG PO SCH (12:00)
[2021-07-08] MEDS ORDERED: MULTIVITAMIN (CENTRUM) TABLET PO SCH (09:00)
== END 2021-07-07 09:53 | disposition expired | DRG 871 ==
LOC: EDBD → EDUNIT# → N.ED 08:40 → SUATTDRO 10:51 → N.EDINP 10:51 → N.TELEN 12:02
PROVIDERS: ADMIT Internal Medicine; ATTEND Hospitalist